=== PATIENT | female | born 2000 | race Two or more races ===

== ENCOUNTER 2020-10-20 02:25 | Inpatient (IN) | payer OTHER ==
[2020-10-20 02:32] VITALS: BMI 32.2
[2020-10-20 03:08] LABS: BASO % 0.6 % (0-2.0); HEMATOCRIT 39.5 % (32.4-45.2); HEMOGLOBIN 13.5 GM/dL (10.7-15.3); LYMPH % 24.1 % (8-40); MCH 31.8 pg (25.7-33.7); MCHC 34.2 g/dl (32.0-36.0); MEAN CELL VOLUME 92.9 fl (80-96); MEAN PLT VOLUME 11.3 fl (7.5-11.1); MONO % 9.3 % (3.8-10.2); PLATELET COUNT 188 K/MM3 (134-434); RBC 4.25 M/mm3 (3.60-5.2); RDW 13.9 % (11.6-15.6); WHITE BLOOD COUNT 4.3 K/mm3 (4.0-10.0)
[2020-10-20 03:22] LABS: INR 1.11 (0.83-1.09); PROTHROMBIN TIME (PATIENT) 13.6 SEC (9.7-13.0)
[2020-10-20 03:24] LABS: ACTIVATED PTT 26.7 SECONDS (25.2-36.5)
[2020-10-20 03:25] LABS: CHLORIDE 108 mmol/L (98-107); SODIUM 139 mmol/L (136-145)
[2020-10-20 03:26] LABS: CALCIUM 8.9 mg/dL (8.5-10.1)
[2020-10-20 03:27] LABS: ALBUMIN 4.1 g/dl (3.4-5.0); ANION GAP 7 MMOL/L (8-16); BLOOD UREA NITROGEN 9.9 mg/dL (7-18); CO2 25 mmol/L (21-32); GLUCOSE,RANDOM 96 mg/dL (74-106)
[2020-10-20] MEDS ORDERED: POTASSIUM CHLORIDE TABS 10 MEQ TABLET.ER (FP) PO ONE (03:28)
[2020-10-20 03:31] LABS: CREATININE 0.7 mg/dL (0.55-1.3); SGOT/AST 25 U/L (15-37); SGPT/ALT 28 U/L (13-61)
[2020-10-20 03:33] LABS: ALK PHOS 38 U/L (45-117); BILIRUBIN,TOTAL 0.4 mg/dL (0.2-1); TOT PROT 7.2 g/dl (6.4-8.2)
[2020-10-20] MEDS ORDERED: POTASSIUM CHLORIDE TABS 10 MEQ TABLET.ER (FP) ONE (03:37)
[2020-10-20] MEDS ORDERED: MAGNESIUM SULF 50% (8.12 MEQ/2 ML-1 GM VIAL) IVPB ONE (03:43)
[2020-10-20] MEDS ORDERED: LACTATED RINGERS SOLUTION 1000 ML INFUS.BAG IV ONE (03:48)
[2020-10-20] MEDS ORDERED: MAGNESIUM SULFATE IN WATER 2 GM/50 ML IVPB IVPB ONE (04:16)
[2020-10-20 08:05] LABS: HCG,QUALITATIVE URINE Negative
[2020-10-20 08:07] LABS: COCAINE, UR NEGATIVE ng/ml (CUTOFF=300); URINE AMPHETAMINES NEGATIVE ng/ml (CUTOFF=500); URINE BARBITURATES NEGATIVE ng/ml (CUTOFF=200)
[2020-10-20 08:12] LABS: METHADONE, UR NEGATIVE ng/ml (CUTOFF=300); OPIATES, URI NEGATIVE ng/ml (CUTOFF=300); PHENCYCLIDINE,URINE NEGATIVE ng/ml (CUTOFF=25); URINE BENZODIAZEPINES NEGATIVE ng/ml (CUTOFF=200)
[2020-10-20 08:39] LABS: URINE COLOR DK YELLOW
[2020-10-20 08:40] LABS: URINE APPEARANCE CLOUDY; URINE BILIRUBIN NEGATIVE (NEGATIVE); URINE GLUCOSE (UA) NEGATIVE (NEGATIVE); URINE KETONE 40 mg/dl (NEGATIVE); URINE NITRITE NEGATIVE (NEGATIVE); URINE PROTEIN 30 (NEGATIVE)
[2020-10-20 08:41] LABS: EPI CELLS 23.5 /uL (0-25.1); HYALINE CASTS 6.55 /uL (0-3.1); URINE LEUK ESTERASE NEGATIVE (NEGATIVE); URINE RBC 640.8 /uL (0-23.9); URINE WBC 203.8 /uL (0-25.8)
[2020-10-20] MEDS ORDERED: APIXABAN 5 MG TABLET PO ONE (11:19)
[2020-10-20 14:21] LABS: MAGNESIUM 2.3 mg/dL (1.8-2.4)
[2020-10-20 14:25] LABS: PHOSPHOROUS 4.3 mg/dL (2.5-4.9)
[2020-10-20 18:56] VITALS: BP 110/65; PULSE 85; TEMP 98.2
[2020-10-20] MEDS ORDERED: APIXABAN 5 MG TABLET PO SCH (22:00)
== END 2020-10-20 18:57 | disposition left against medical advice (07) | DRG 204 ==
LOC: JER 02:25 → JERBED 11:35 → OBSVTOIN 11:35
PROVIDERS: ADMIT Family Medicine; ATTEND Family Medicine
DX: R55 Syncope and collapse (principal); F12.90 Cannabis use, unspecified, uncomplicated; I73.9 Peripheral vascular disease, unspecified; K55.1 Chronic vascular disorders of intestine; Z86.718 Personal history of other venous thrombosis and embolism; Z98.84 Bariatric surgery status
CPT/HCPCS: 36415; 70450-TC; 71046-TC-FY; 74175-TC; 80053; 80307; 81003; 82550; 83605; 83735; 84100; 84484; 84702; 84703; 85025; 85379; 85610; 85730; 87086; 93005; 93010; 99285-25; C9803; U0003

== ENCOUNTER 2020-11-30 19:12 | Emergency (ER) | payer OTHER ==
[2020-11-30 19:20] VITALS: BP 99/61; PULSE 78; TEMP 98.6; BMI 30.2
[2020-11-30 19:47] LABS: EPI CELLS 26 /uL (0-25.1); HYALINE CASTS 1 /uL (0-3.1); URINE APPEARANCE TURBID; URINE BACTERIA 7330 /uL (0-1359); URINE BILIRUBIN 2+ (NEGATIVE); URINE COLOR ORANGE; URINE GLUCOSE (UA) NEGATIVE (NEGATIVE); URINE KETONE NEGATIVE (NEGATIVE); URINE LEUK ESTERASE 3+ (NEGATIVE); URINE NITRITE POSITIVE (NEGATIVE); URINE PROTEIN 2+ (NEGATIVE); URINE RBC 567 /uL (0-23.9); URINE WBC 1250 /uL (0-25.8)
== END 2020-11-30 20:12 | disposition home or self-care (01) ==
LOC: JERFT 19:12
DX: N39.0 Urinary tract infection, site not specified (principal)
CPT/HCPCS: 81003; 84703; 87086; 87186; 99284-25

== ENCOUNTER 2022-01-07 17:45 | Emergency (ER) | payer OTHER ==
[2022-01-07 17:59] VITALS: BP 115/69; PULSE 82; TEMP 98.2; BMI 24.7
[2022-01-07] MEDS ORDERED: ONDANSETRON 4 MG/2 ML VIAL IVPUSH ONE (18:24)
[2022-01-07] MEDS ORDERED: PANTOPRAZOLE SODIUM 40 MG VIAL IVPB ONE (18:24)
[2022-01-07] MEDS ORDERED: ACETAMINOPHEN 1000 MG/100 ML BAG IVPB ONE (18:24)
[2022-01-07] MEDS ORDERED: PANTOPRAZOLE SODIUM 40 MG/100 ML BAG IVPB ONE (18:45)
[2022-01-07] MEDS ORDERED: ACETAMINOPHEN INJECTION 100 ML IVPB ONE ×2 (18:45→20:37)
[2022-01-07] MEDS ORDERED: ONDANSETRON 4 MG/2 ML VIAL ONE (18:46)
[2022-01-07 19:25] LABS: PH,URINE 7.5 (5.0-8.0); URINE APPEARANCE CLEAR; URINE BILIRUBIN NEGATIVE (NEGATIVE); URINE COLOR YELLOW; URINE GLUCOSE (UA) NEGATIVE (NEGATIVE); URINE KETONE NEGATIVE (NEGATIVE); URINE LEUK ESTERASE NEGATIVE (NEGATIVE); URINE NITRITE NEGATIVE (NEGATIVE); URINE PROTEIN NEGATIVE (NEGATIVE)
[2022-01-07 19:28] LABS: BASO % 0.7 % (0-2.0); EOS % 2.2 % (0-4.5); HEMATOCRIT 37.8 % (32.4-45.2); HEMOGLOBIN 12.7 GM/dL (10.7-15.3); LYMPH % 27.9 % (8-40); MCH 31.1 pg (25.7-33.7); MCHC 33.7 g/dl (32.0-36.0); MEAN CELL VOLUME 92.2 fl (80-96); MEAN PLT VOLUME 8.9 fl (7.5-11.1); MONO % 7.3 % (3.8-10.2); NEUT % 61.9 % (42.8-82.8); PLATELET COUNT 263 10^3/uL (134-434); RDW 13.1 % (11.6-15.6); WHITE BLOOD COUNT 4.7 K/mm3 (4.0-10.0)
[2022-01-07 19:35] LABS: HCG,QUALITATIVE URINE Negative
[2022-01-07 19:36] LABS: INR 1.03 (0.83-1.09); PROTHROMBIN TIME (PATIENT) 11.9 SEC (9.7-13.0)
[2022-01-07 19:39] LABS: ACTIVATED PTT 27.4 SECONDS (25.2-36.5)
[2022-01-07 19:56] LABS: BLOOD UREA NITROGEN 12.3 mg/dL (7-18); CALCIUM 9.1 mg/dL (8.5-10.1)
[2022-01-07 19:57] LABS: ALBUMIN 3.8 g/dl (3.4-5.0); MAGNESIUM 2.1 mg/dL (1.8-2.4)
[2022-01-07 19:59] LABS: CREATININE 0.7 mg/dL (0.55-1.3); PHOSPHOROUS 3.7 mg/dL (2.5-4.9)
[2022-01-07 20:01] LABS: BILIRUBIN,TOTAL 0.9 mg/dL (0.2-1); TOT PROT 7.2 g/dl (6.4-8.2)
[2022-01-07 21:00] LABS: SYPHILIS W/ RPR CONF NON-REACTIVE (NONREACTIVE)
[2022-01-07 21:30] LABS: HIV INTERPRETATION NEGATIVE (NEGATIVE)
== END 2022-01-07 23:42 | disposition home or self-care (01) ==
LOC: JER 17:45
PROC: 3E033GC Introduction of Other Therapeutic Substance into Peripheral Vein, Percutaneous Approach (ICD-10-PCS; principal; 2022-01-07)
DX: I81 Portal vein thrombosis (principal)
CPT/HCPCS: 36415; 74174-TC; 80053; 81003; 83690; 83735; 84100; 84703; 85025; 85610; 85730; 86780; 86803; 86850; 86900; 86901; 87086; 87389; 87491; 87591; 93005; 93010; 99285-25; Q9967

== ENCOUNTER 2022-07-25 17:37 | Emergency (ER) | payer OTHER ==
[2022-07-25 17:42] VITALS: BP 128/83; PULSE 103; RESP 18; TEMP 97; BMI 26.9
[2022-07-25 20:11] LABS: BASO % 0.4 % (0-2.0); EOS % 0.3 % (0-4.5); HEMATOCRIT 38.9 % (32.4-45.2); HEMOGLOBIN 12.8 GM/dL (10.7-15.3); LYMPH % 21.9 % (8-40); MEAN CELL VOLUME 90.9 fl (80-96); MEAN PLT VOLUME 8.9 fl (7.5-11.1); MONO % 6.8 % (3.8-10.2); NEUT % 70.6 % (42.8-82.8); PLATELET COUNT 280 10^3/uL (134-434); RBC 4.27 M/mm3 (3.60-5.2); RDW 13.8 % (11.6-15.6); WHITE BLOOD COUNT 6.3 K/mm3 (4.0-10.0)
[2022-07-25 20:22] LABS: CALCIUM 8.9 mg/dL (8.5-10.1)
[2022-07-25 20:24] LABS: ALBUMIN 3.7 g/dl (3.4-5.0); BLOOD UREA NITROGEN 14.6 mg/dL (7-18)
[2022-07-25 20:26] LABS: INR 1.04 (0.83-1.09)
[2022-07-25 20:27] LABS: CREATININE 0.7 mg/dL (0.55-1.3)
[2022-07-25 20:28] LABS: ACTIVATED PTT 26.8 SECONDS (25.2-36.5); BILIRUBIN,TOTAL 0.3 mg/dL (0.2-1)
== END 2022-07-25 21:17 | disposition home or self-care (01) ==
LOC: JER 17:37
DX: R07.9 Chest pain, unspecified (principal)
CPT/HCPCS: 36415; 80053; 84484; 84703; 85025; 85379; 85610; 85730; 93005; 93010; 99284-25

== ENCOUNTER 2024-02-28 12:45 | Emergency (ER) | payer OTHER ==
[2024-02-28 13:00] VITALS: BP 109/64; PULSE 101; RESP 17; TEMP 98.9; BMI 27.5
[2024-02-28 13:43] LABS: BASO % 0.5 % (0-2.0); HEMATOCRIT 39.6 % (32.4-45.2); HEMOGLOBIN 13.4 GM/dL (10.7-15.3); MCH 30.2 pg (25.7-33.7); MCHC 33.8 g/dl (32.0-36.0); MEAN CELL VOLUME 89.4 fl (80-96); MEAN PLT VOLUME 9.2 fl (7.5-11.1); MONO % 7.6 % (3.8-10.2); NEUT % 66.9 % (42.8-82.8); PLATELET COUNT 278 10^3/uL (134-434); RBC 4.43 M/mm3 (3.60-5.2); RDW 14.6 % (11.6-15.6)
[2024-02-28 14:02] LABS: POTASSIUM 4.5 mmol/L (3.5-5.1)
[2024-02-28 14:03] LABS: CALCIUM 9.5 mg/dL (8.5-10.1)
[2024-02-28 14:04] LABS: BLOOD UREA NITROGEN 14.7 mg/dL (7-18)
[2024-02-28 14:07] LABS: CREATININE 0.8 mg/dL (0.55-1.3)
[2024-02-28 14:09] LABS: BILIRUBIN,TOTAL 0.6 mg/dL (0.2-1); TOT PROT 7.9 g/dl (6.4-8.2)
[2024-02-28 14:23] LABS: EPI CELLS 22 /uL (0-25.1); HYALINE CASTS 2 /uL (0-3.1); URINE APPEARANCE CLEAR; URINE BACTERIA 414 /uL (0-1359); URINE BILIRUBIN NEGATIVE (NEGATIVE); URINE COLOR YELLOW; URINE GLUCOSE (UA) NEGATIVE (NEGATIVE); URINE KETONE TRACE (NEGATIVE); URINE LEUK ESTERASE TRACE (NEGATIVE); URINE NITRITE NEGATIVE (NEGATIVE); URINE PROTEIN NEGATIVE (NEGATIVE); URINE WBC 53 /uL (0-25.8)
[2024-02-28 14:24] LABS: URINE RBC 36 /uL (0-23.9)
== END 2024-02-28 17:24 | disposition home or self-care (01) ==
LOC: JER 12:45
DX: O20.9 Hemorrhage in early pregnancy, unspecified (principal); O26.891 Other specified pregnancy related conditions, first trimester; R10.2 Pelvic and perineal pain; Z3A.01 Less than 8 weeks gestation of pregnancy
CPT/HCPCS: 36415; 76817-TC; 80053; 81003; 84702; 84703; 85025; 87086; 99284-25

== ENCOUNTER 2024-03-02 00:16 | Emergency (ER) | payer OTHER ==
[2024-03-02 00:27] VITALS: BP 105/66; PULSE 70; RESP 108; TEMP 97.9; BMI 27.5
== END 2024-03-02 02:57 | disposition home or self-care (01) ==
LOC: JER 00:16
DX: O20.9 Hemorrhage in early pregnancy, unspecified (principal); O26.899 Other specified pregnancy related conditions, unspecified trimester; R10.2 Pelvic and perineal pain; Z3A.00 Weeks of gestation of pregnancy not specified
CPT/HCPCS: 36415; 76817-TC; 84702; 99284-25

== ENCOUNTER 2025-02-02 23:18 | Emergency (ER) | payer OTHER ==
[2025-02-02 23:23] VITALS: BP 109/67; PULSE 81; RESP 17; TEMP 98.2; BMI 27.7
[2025-02-03 00:28] LABS: ABSOLUTE IMMATURE GRANULOCYTES 0.02 x10^3/uL (0.0-0.031); BASOPHILS # 0.02 x10^3/uL (0.01-0.08); EOSINOPHIL % 1.2 % (0.7-5.8); EOSINOPHILS # 0.07 x10^3/uL (0.04-0.36); HEMATOCRIT 33.3 % (34.1-44.9); MEAN CELL VOLUME 91.7 fl (79.4-94.8); MEAN PLT VOLUME 10.8 fl (9.4-12.3); MONOCYTE # 0.45 x10^3/uL (0.24-0.86); MONOCYTE % 7.7 % (4.7-12.5); PLATELET COUNT 228 x10^3/uL (182-369); RDW 12.1 % (12.1-16.5)
[2025-02-03 01:15] LABS: POTASSIUM 3.7 mmol/L (3.5-5.1)
[2025-02-03 01:17] LABS: CALCIUM 8.9 mg/dL (8.5-10.1)
[2025-02-03 01:18] LABS: ALBUMIN 3.7 g/dl (3.4-5.0); BLOOD UREA NITROGEN 13.6 mg/dL (7-18)
[2025-02-03 01:21] LABS: CREATININE 0.6 mg/dL (0.55-1.3)
[2025-02-03 01:22] LABS: BILIRUBIN,TOTAL 0.3 mg/dL (0.2-1)
[2025-02-03 01:23] LABS: TOT PROT 6.9 g/dl (6.4-8.2)
[2025-02-03 01:25] LABS: PH,URINE 6.5 (5.0-8.0); URINE APPEARANCE CLEAR; URINE BILIRUBIN NEGATIVE (NEGATIVE); URINE COLOR YELLOW; URINE GLUCOSE (UA) NEGATIVE (NEGATIVE); URINE KETONE TRACE (NEGATIVE); URINE LEUK ESTERASE NEGATIVE (NEGATIVE); URINE NITRITE NEGATIVE (NEGATIVE); URINE PROTEIN NEGATIVE (NEGATIVE); URINE UROBILINOGEN 0.2 mg/dL (0.2-1.0)
== END 2025-02-03 01:57 | disposition home or self-care (01) ==
LOC: JER 23:18
DX: O26.891 Other specified pregnancy related conditions, first trimester (principal); R10.2 Pelvic and perineal pain; Z3A.01 Less than 8 weeks gestation of pregnancy
CPT/HCPCS: 36415; 76817-TC; 80053; 81003; 84702; 85025; 86850; 86900; 86901; 87086; 99284-25

== ENCOUNTER 2025-04-10 15:02 | Emergency (ER) | payer OTHER ==
[2025-04-10 15:08] VITALS: BP 113/74; RESP 20; TEMP 98.6; BMI 30.2
[2025-04-10] MEDS ORDERED: guaiFENesin 200 MG/10 ML 10 ML UNIT-DOSE CUPS ONE (15:57)
[2025-04-10] MEDS ORDERED: ALBUTEROL SO4 0.083% IH SOL 2.5 MG/3 ML VIAL.NEB. NEB ONE (15:57)
[2025-04-10] MEDS: ALBUTEROL SO4 0.083% IH SOL 2.5 MG/3 ML VIAL.NEB. NEB ONE (16:31)
[2025-04-10] MEDS: guaiFENesin 200 MG/10 ML 10 ML UNIT-DOSE CUPS PO ONE (16:31)
[2025-04-10 17:18] VITALS: PULSE 88
== END 2025-04-10 17:29 | disposition home or self-care (01) ==
LOC: JERFT 15:02
PROC: 3E0F7GC Introduction of Other Therapeutic Substance into Respiratory Tract, Via Natural or Artificial Opening (ICD-10-PCS; principal; 2025-04-10)
DX: O99.891 Other specified diseases and conditions complicating pregnancy (principal); R05.1 Acute cough; R09.81 Nasal congestion; R68.83 Chills (without fever); R06.2 Wheezing; Z3A.17 17 weeks gestation of pregnancy
CPT/HCPCS: 0241U-QW; 99283-25